=== PATIENT | female | born 1990 | race Caucasian/White ===

== ENCOUNTER 2017-07-20 08:42 | Emergency (ER) | payer SELFPAY ==
[2017-07-20 09:29] VITALS: BP 119/69
--- NOTE | 2017-07-20 10:05 | UC ---
Respiratory Complaint HPI - HPI Summary HPI Summary: Pt c/o generalized body aches, night sweats, cough X 1 week. 2. Pt also, c/o of nontender breast lump in right breast that has increased in size. Pt states she has felt this lump since age 21. Pt had IUD removed 1 month ago. - History of Current Complaint Chief Complaint: UCRespiratory Stated Complaint: CONGESTION Time Seen by Provider: 07/20/17 09:28 Hx Obtained From: Patient Hx Last Menstrual Period: 07/07/17 ?: No - UC negative Onset/Duration: Gradual Onset - cougha nd breast lump, Still Present Timing: Constant Severity Initially: Mild Severity Currently: Mild Character: Cough: Nonproductive Aggravating Factors: Deep Breaths, Recumbent Position Alleviating Factors: Nothing Associated Signs And Symptoms: Positive: Chills - Risk Factors Pulmonary Embolism Risk Factors: Smoking Cardiac Risk Factors: Smoking Tuberculosis Risk Factors: Smoking - Allergies/Home Medications Allergies/Adverse Reactions: Allergies Allergy/AdvReac Type Severity Reaction Status Date / Time No Known Allergies Allergy Verified 07/20/17 09:29 PMH/Surg Hx/FS Hx/Imm Hx Previously Healthy: Yes Respiratory History: Pneumonia - Surgical History Surgical History: None - Family History Known Family History: Positive: Respiratory Disease - father, pneumonia and bronchitis - Social History Occupation: Employed Full-time Lives: With Family Alcohol Use: Weekly Substance Use Type: None Smoking Status (MU): Light Every Day Tobacco Smoker Type: Cigarettes Amount Used/How Often: 5 cigs per day Have You Smoked in the Last Year: Yes Review of Systems Constitutional: Chills, Fatigue Skin: Negative Eyes: Negative ENT: Negative Respiratory: Cough Cardiovascular: Negative Gastrointestinal: Negative Genitourinary: Negative Motor: Negative Neurovascular: Negative Musculoskeletal: Negative Neurological: Negative Psychological: Negative Is Patient Immunocompromised?: No All Other Systems Reviewed And Are Negative: Yes Physical Exam Triage Information Reviewed: Yes Appearance: Well-Appearing Vital Signs: Initial Vital Signs Temp 98.9 F 07/20/17 09:24 Pulse 74 07/20/17 09:24 Resp 16 07/20/17 09:24 BP 119/69 07/20/17 09:24 Pulse Ox 99 07/20/17 09:24 Vital Signs Reviewed: Yes Eye Exam: Normal ENT Exam: Normal Dental Exam: Normal Neck exam: Normal Respiratory Exam: Normal Respiratory: Positive: Normal breath sounds, No respiratory distress Cardiovascular Exam: Normal, Other - breast lump appreciated, at 12 o.clock position ~ 2.5 cm proximal of areola. no dimpling of skin, no peau d'orange UC Diagnostic Evaluation - Laboratory O2 Sat by Pulse Oximetry: 99 Respiratory Course/Dx - Course Course Of Treatment: I dsiscussed with the pt the positive results of the rapid flu test for flu B. I discussed the negative test and discussed the needt o follow up as soon as possible with the breast lump/mass appreciated in right breast. I also discussed the results of the chest xray. IMPRESSION: NO ACTIVE DISEASE. - Differential Dx/Diagnosis Differential Diagnosis/HQI/PQRI: Bronchitis, Influenza Provider Diagnoses: Influenza B. bronchitis. breast mass Discharge - Discharge Plan Condition: Stable Disposition: HOME Prescriptions: Azithromycin TAB* [Zithromax TAB (Z-ROQUE) 250 mg #6 tabs] 2 tab PO .TODAY, THEN 1 DAILY #1 roque Benzonatate CAP* [Tessalon 100 MG CAP*] 100 mg PO Q8H PRN #21 cap PRN Reason: Cough Oseltamivir CAP* [Tamiflu CAP*] 75 mg PO Q12H #10 cap Patient Education Materials: Influenza (DC), Acute Bronchitis (ED), Breast Mass (ED) Referrals: [facility] [Outside] - As Soon As Possible Non Staff,Doctor [Primary Care Provider] - If Needed Additional Instructions: Please establish care with a primary care provider as soon as possible regarding your complaint of breast lump. It is important that this complaint and finding be evaluated beyond what we can provide at today's visit. Images Front/Back of Body, Lg (Emmons): 1 - firm, non tender small marble sized mass that is irregualar in shape and movemable, has elongated edges
--- NOTE | 2017-07-20 10:21 | RAD ---
INDICATION: Cough COMPARISON: None TECHNIQUE: PA and lateral dual-energy views were obtained. FINDINGS: Bones/Soft Tissues: There are no acute bony findings. Cardiomediastinal: The cardiomediastinal silhouette is normal. Lungs: There are no infiltrates. Pleura: There are no pleural effusions. Other: None IMPRESSION: NO ACTIVE DISEASE.
== END 2017-07-20 10:35 | disposition home or self-care (01) ==
LOC: UCCORT 08:42
DX: J10.1 Influenza due to other identified influenza virus with other respiratory manifestations (principal); J40 Bronchitis, not specified as acute or chronic; N63.11 Unspecified lump in the right breast, upper outer quadrant; Z72.0 Tobacco use; Z72.89 Other problems related to lifestyle
CPT/HCPCS: 71046; 84702; 87502; 99202; G0463

== ENCOUNTER 2018-10-30 08:46 | Emergency (ER) | payer OTHER ==
[2018-10-30 09:07] VITALS: BP 108/53
--- NOTE | 2018-10-30 09:31 | UC ---
Skin Complaint HPI - HPI Summary HPI Summary: 28-year-old female presents with a pruritic rash to her right upper arm for the past 3 weeks. States she recently took a boxing and was concerned that the rash was ringworm. She used an [id number] topical antifungal medication with no improvement in symptoms. Denies fever, chills, increased warmth, pain, or known tick/insect bite. - History of Current Complaint Chief Complaint: UCSkin Time Seen by Provider: 10/30/18 09:13 Stated Complaint: SKIN COMPLAINT Hx Last Menstrual Period: 10/08/18 Pain Intensity: 0 - Allergy/Home Medications Allergies/Adverse Reactions: Allergies Allergy/AdvReac Type Severity Reaction Status Date / Time bee venom protein (honey bee) Allergy Swelling Verified 10/30/18 09:03 PMH/Surg Hx/FS Hx/Imm Hx Previously Healthy: Yes - Denies significant PMH - Surgical History Surgical History: None - Family History Known Family History: Positive: Respiratory Disease - father, pneumonia and bronchitis - Social History Occupation: Employed Full-time Lives: Alone Alcohol Use: Occasionally Substance Use Type: None Smoking Status (MU): Heavy Every Day Tobacco Smoker Type: Cigarettes Amount Used/How Often: 1/2-1 PPD Length of Time of Smoking/Using Tobacco: Since Age 18 Have You Smoked in the Last Year: Yes - Immunization History Vaccination Up to Date: Yes Review of Systems All Other Systems Reviewed And Are Negative: Yes Constitutional: Negative: Fever, Chills Skin: Positive: Rash - See HPI Respiratory: Positive: Negative Cardiovascular: Positive: Negative Gastrointestinal: Positive: Negative Genitourinary: Positive: Negative Musculoskeletal: Positive: Negative Neurological: Positive: Negative Physical Exam - Summary Physical Exam Summary: GENERAL APPEARANCE: Well developed, well nourished, alert and cooperative, and appears to be in no acute distress. CARDIAC: Normal S1 and S2. No S3, S4 or murmurs. Rhythm is regular. There is no peripheral edema, cyanosis or pallor. Extremities are warm and well perfused. Capillary refill is less than 2 seconds. Peripheral pulses intact. LUNGS: Clear to auscultation without rales, rhonchi, wheezing or diminished breath sounds. ABDOMEN: Positive bowel sounds. Soft, nondistended, nontender. No guarding or rebound. No masses or hepatosplenomegally. MUSKULOSKELETAL: ROM intact to all extremities. No joint erythema or tenderness. Normal muscular development. Normal gait. SKIN: 3 cm circular erythematous scaly rash to the right upper arm. Triage Information Reviewed: Yes Vital Signs: Initial Vital Signs Temp 99.1 F 10/30/18 09:03 Pulse 70 10/30/18 09:03 Resp 15 10/30/18 09:03 BP 108/53 10/30/18 09:03 Pulse Ox 100 10/30/18 09:03 Vital Signs Reviewed: Yes Course/Dx - Course Course Of Treatment: 28-year-old female presents with a pruritic rash to her right upper arm for the past 3 weeks. States she recently took a boxing and was concerned that the rash was ringworm. She used an [id number] topical antifungal medication with no improvement in symptoms. Denies fever, chills, increased warmth, pain, or known tick/insect bite. Afebrile. Vital signs stable. Exam revealed a 3 cm circular, erythematous, scaly rash to the right upper arm and was otherwise unremarkable. Appearance of the rash was consistent with a tinea corporis. Since treatment with a topical antifungal was insufficient will provide her with a prescription for terbinafine 250 mg daily 2 weeks. She is to follow-up with her primary care provider in 5-7 days if symptoms do not improve. Anticipatory guidance and warning symptoms were reviewed with the patient. Verbalizes understanding and agrees with plan of care. - Differential Diagnoses - Skin Complaint Differential Diagnoses: Cellulitis, Contact Dermatitis, Local Allergic Reaction , Tinea - Diagnoses Provider Diagnosis: Tinea corporis Discharge - Sign-Out/Discharge Documenting (check all that apply): Patient Departure All imaging exams completed and their final reports reviewed: No Studies - Discharge Plan Condition: Stable Disposition: HOME Prescriptions: Terbinafine HCl 250 mg PO DAILY #14 tablet Patient Education Materials: Tinea Corporis (ED) Referrals: Umm Chan MD [Primary Care Provider] - 5 Days Additional Instructions: The rash on your arm appear to be a fungal infection. Since it did not respond to the topical treatment we will treat you with an oral medication. Take terbinafine 250 mg 1 tab daily for 2 weeks. Follow up with your primary care provider in 5-7 days if no improvement in symptoms. Seek immediate medical attention if you develop fever greater than 100.5 F, the redness continues to spread, you have pain, or any worsening of symptoms. - Billing Disposition and Condition Condition: STABLE Disposition: Home
== END 2018-10-30 09:35 | disposition home or self-care (01) ==
LOC: UCCORT 08:46
DX: B35.4 Tinea corporis (principal); F17.210 Nicotine dependence, cigarettes, uncomplicated; Z91.030 Bee allergy status
CPT/HCPCS: 99212; G0463

== ENCOUNTER 2018-11-26 15:08 | Emergency (ER) | payer OTHER ==
[2018-11-26 15:48] VITALS: BP 124/72
--- NOTE | 2018-11-26 16:39 | UC ---
General HPI - HPI Summary HPI Summary: pt was bitten in the face when she bent over to pet a dog that was walking by with its rn utilization management um. dog was on a leash. pt does not know the dog or rn utilization management um and states she told rn utilization management um she was fine. last tetanus was within 10 years. onset 2:30pm. dog was fine before and after. - History of Current Complaint Chief Complaint: UCBiteInjury Stated Complaint: DOGBITE FACE Time Seen by Provider: 11/26/18 16:30 Hx Obtained From: Patient Hx Last Menstrual Period: 11/07/18 Onset/Duration: Sudden Onset Timing: Constant Pain Intensity: 1 Associated Signs & Symptoms: Negative: Edema, Fever - Allergy/Home Medications Allergies/Adverse Reactions: Allergies Allergy/AdvReac Type Severity Reaction Status Date / Time bee venom protein (honey bee) Allergy Swelling Verified 11/26/18 15:43 PMH/Surg Hx/FS Hx/Imm Hx Previously Healthy: Yes - Surgical History Surgical History: None - Family History Known Family History: Positive: Respiratory Disease - father, pneumonia and bronchitis - Social History Alcohol Use: None Substance Use Type: None Smoking Status (MU): Heavy Every Day Tobacco Smoker Type: Cigarettes Amount Used/How Often: 1/2-1 PPD Length of Time of Smoking/Using Tobacco: Since Age 18 Have You Smoked in the Last Year: Yes - Immunization History Hx Tetanus, Diphtheria Vaccination: Yes Vaccination Up to Date: Yes Review of Systems All Other Systems Reviewed And Are Negative: No Constitutional: Negative: Fever Skin: Positive: Other - wounds bridge of nose and under chin Eyes: Negative: Eye Redness Musculoskeletal: Negative: Edema Physical Exam Triage Information Reviewed: Yes Appearance: Well-Appearing Vital Signs: Initial Vital Signs Temp 99.3 F 11/26/18 15:43 Pulse 83 11/26/18 15:43 Resp 16 11/26/18 15:43 BP 124/72 11/26/18 15:43 Pulse Ox 100 11/26/18 15:43 Vital Signs Reviewed: Yes Eyes: Positive: Conjunctiva Clear, Other: - PERRL, EOMI ENT: Negative: Nasal drainage Respiratory: Positive: No respiratory distress Neurological: Positive: Alert Psychological: Positive: Age Appropriate Behavior Skin Exam: Normal, Other - Abrasion R side of nose and superficial laceration L side of nose. 3/4cm laceration under chin with fat seen and 2 specs of FB. no active bleeding from wounds and no streaks or drainage. Course/Dx - Course Course Of Treatment: Provider Procedure: all wounds cleansed with dilute betadine in sterile water. sites irrigated with sterile water under pressure. the 2 tiny FB's were removed with cleaning. wounds dried with sterile gauze. nasal sites covered with Bacitracin. chin prep Mastisol and a single thin steri strip was applied to the wound. pt tolerated well. - Differential Dx - Multi-Symptom Differential Diagnoses: Other - no signs of infection - Diagnoses Provider Diagnosis: Dog bite Discharge - Sign-Out/Discharge Documenting (check all that apply): Patient Departure All imaging exams completed and their final reports reviewed: No Studies - Discharge Plan Condition: Stable Disposition: HOME Prescriptions: Amoxicillin/Clavulanate TAB* [Augmentin TAB 875*] 875 mg PO BID 7 Days #14 tab Patient Education Materials: Animal Bite (ED) Referrals: Umm Chan MD [Primary Care Provider] - If Needed - Billing Disposition and Condition Condition: STABLE Disposition: Home
== END 2018-11-26 17:07 | disposition home or self-care (01) ==
LOC: UCCORT 15:08
DX: S01.85XA Open bite of other part of head, initial encounter (principal); W54.0XXA Bitten by dog, initial encounter; F17.210 Nicotine dependence, cigarettes, uncomplicated
CPT/HCPCS: 99212; G0463